=== PATIENT | male | born 1965 | race Caucasian/White ===

== ENCOUNTER → 2019-10-09 | Outpatient (CLI) | payer OTHER | LOC: CAT 09:58 | PROVIDERS: ATTEND Nurse Practitioner | DX: Z13.6 Encounter for screening for cardiovascular disorders (principal); I25.10 Atherosclerotic heart disease of native coronary artery without angina pectoris; E78.00 Pure hypercholesterolemia, unspecified ==

== ENCOUNTER → 2019-11-05 | Outpatient (CLI) | payer BC | LOC: SJCVCIMAG 08:37 | PROVIDERS: ATTEND Internal Medicine Cardiovascular Disease | DX: I35.8 Other nonrheumatic aortic valve disorders (principal); I11.9 Hypertensive heart disease without heart failure; R06.00 Dyspnea, unspecified; I25.10 Atherosclerotic heart disease of native coronary artery without angina pectoris; E78.5 Hyperlipidemia, unspecified; E66.9 Obesity, unspecified ==

== ENCOUNTER → 2019-11-11 | Outpatient (CLI) | payer BC ==
[~2019-11-11] MED LIST: AMBIEN 10 MG TA10 MG PO; ASA81BEC PO; CIALIS10 MG PO; FISH OIL 1,0001 EAC9 PO; LEXAPRO20 MG PO; LIPITOR80 MG PO; SUPER THERAVIT1 EACH PO; TOPROL XL50 MG PO
== END ==
LOC: SJCVCIMAG 11:24
PROVIDERS: ATTEND Internal Medicine Cardiovascular Disease
DX: I25.10 Atherosclerotic heart disease of native coronary artery without angina pectoris (principal); R06.00 Dyspnea, unspecified; I10 Essential (primary) hypertension; E78.5 Hyperlipidemia, unspecified; E66.9 Obesity, unspecified; Z79.899 Other long term (current) drug therapy

== ENCOUNTER → 2019-11-18 | Outpatient (CLI) | payer BC ==
[~2019-11-18] VITALS: Ht 180.3 cm; Wt 142.9 kg
--- NOTE | 2019-11-18 16:06 | CATHLAB ---
[facility] [place] [address] INVASIVE PROCEDURE REPORT Name: AJAYHALIMARAFFIMIKE Evelio Room #: REG EZ MccloudJorgeMichelleJorge#: [id number] Admission: 11/18/19 Attend Phys: Leobardo Hopkins MD Discharge: Date of : 67 Report #: [id number] THIS REPORT FOR: cc: Angelo Ortega Andrea RNP Park, Jin S. MD ~ APPROVED REPORT Study performed: 11/18/2019 10:56:36 Patient Details Patient Status: Out-Patient Room #: The patient is a 54 year-old male Event Personnel Leobardo Hopkins Delivery Of [employer], Marcos Hansen RN RN, Keenan Maria RTR Sylvester Zimmerman Nancy RTR, CONSULTING TECHNICAL MANAGER Monitor Procedures Performed Art Access - R femoral artery* Left Heart Cath w/or w/o Coronaries [id number] [facility] [id number] Initial Mod Sed Same Phys/QHP Gr5y [id number] Mod Sed Same Phys/QHP Ea [id number] Hemostasis with Manual pressure Indication Dyspnea, Positive stress test Risk Factors Obesity, Hypercholesterolemia, Coronary Artery DiseaseHypertension Procedure Narrative The Right Groin^ was infiltrated with 1% Lidocaine subcutaneous anesthesia. A PINNACLE 4FR Sheath #[id number] sheath was inserted into the RFA^. Coronary angiography was performed using coronary diagnostic catheters. The right coronary system was accessed and visualized with a 4FR 3DRC #[id number] catheter. The left coronary system was accessed and visualized with a JL4 catheter. The left ventricle was accessed and visualized with a JR4 catheter. Hemostasis was obtained with manual pressure following sheath removal without any complications. The patient tolerated the procedure well and there were no complications associated with the procedure. There was no hematoma. [facility] [address] [place] [address] INVASIVE PROCEDURE REPORT Name: MIKE RAMIREZ Room #: REG [facility]#: [id number] Admission: 11/18/19 Attend Phys: Leobardo Hopkins MD Discharge: Date of : 67 Report #: [id number] Intraoperative Conscious Sedation Sedation start time: 10:56 Case end Time: 11:34 Fentanyl 100 mcg Versed 4 mg Fluoro Time: 3.30 minutes Dose: DAP 9655.60 cGycm2 1416 mGy Contrast Type and Amount: Omnipaque 50 ml Coronary Angiography The patient's coronary anatomy is right dominant. Diagnostic Cath Left Main This is a large-caliber vessel, with no flow-limiting lesions. LAD The LAD is a moderate-sized caliber vessel, traverses the anterior wall and wraps around the apex. There is minimal plaquing in the midsegment. Diagonal 1 This is a patent vessel, with no flow-limiting lesions. Circumflex This is a moderate-sized caliber vessel, patent with no flow-limiting lesions. OM1 There is a moderate-sized caliber vessel, with no flow-limiting lesions. OM2 This is a small to moderate-sized caliber vessel, with no flow-limiting lesions. Right Coronary The RCA is a dominant vessel with a moderate stenosis in the proximal segment, 40 to 50%. R PDA This is a small to moderate-sized caliber vessel, with no flow-limiting lesions. RPLV This is a small to moderate-sized caliber vessel, with no flow-limiting lesions. Left Ventriculography Left Ventriculography was not performed. Ejection Fraction was >55% based off patient's Nuclear Cardiac Stress Test. An LVEDP was measured and there is no gradient across the outflow tract. Hemodynamics The aortic pressure is 133/82 mmHg with a mean of 104 mmHg. The left ventricular pressure is 134/15 mmHg with a mean of mmHg. The left ventricular end diastolic pressure is 24 mmHg. Conclusion 1. There is a moderate stenosis in the RCA. [facility] [address] [place] [address] INVASIVE PROCEDURE REPORT Name: KURTISRAFFIMIKE Room #: REG [facility]#: [id number] Admission: 11/18/19 Attend Phys: Leobardo Hopkins MD Discharge: Date of : 67 Report #: [id number] 2. Minimal plaquing in the mid LAD segment. 3. Normal LV systolic function. 4. Recommend guideline directed medical therapy. <ELECTRONICALLY SIGNED> By: Leobardo Hopkins MD 11/18/191605 05 05 Leobardo Hopkins MD /INF
== END | disposition home or self-care (01) ==
LOC: CATH 07:52
PROVIDERS: ATTEND Internal Medicine Cardiovascular Disease
DX: R94.39 Abnormal result of other cardiovascular function study (principal); R06.00 Dyspnea, unspecified; I25.10 Atherosclerotic heart disease of native coronary artery without angina pectoris; I10 Essential (primary) hypertension; E78.5 Hyperlipidemia, unspecified; Z98.890 Other specified postprocedural states; Z79.899 Other long term (current) drug therapy; Z79.82 Long term (current) use of aspirin